=== PATIENT | male | born 1990 | race Caucasian/White ===

== ENCOUNTER 2019-11-28 13:58 | Emergency (ER) | payer OTHER ==
--- NOTE | 2019-11-28 14:44 | ED ---
Chest Pain HPI - General Chief Complaint: Chest Pain Stated Complaint: chest pain Time Seen by Provider: 11/28/19 14:04 Source: patient Mode of arrival: ambulatory Limitations: no limitations - History of Present Illness Initial Comments: Patient is 29-year-old male with no somatic a past medical history presenting to the emergency room with a chief complaint of chest pain. States the symptoms began about 3 days ago for left-sided chest. Patient reports the pain is located under his ribs on the left side and radiates to his left upper back. Reports the pain is pleuritic in nature and is exacerbated whenever he is laying flat. Pain does appear to be alleviated whenever he sits up or leans forward. States the pain is reproducible palpation. Does report chills and shaking of the upper extremities for the last 2 days. Denies any fevers at home. Denies history of hypertension and hyperlipidemia. Patient is not a smoker. Does have history of cardio vascular disease in the family. He also reports a sore throat, intermittent bilateral otalgia and and rhinorrhea with yellow mucus production. - Related Data Previous Rx's Medication Instructions Recorded Amoxicillin/Potassium Clav 1 tab PO Q12HR #20 tab 11/28/19 [Augmentin 875-125 Tablet] Allergies Allergy/AdvReac Type Severity Reaction Status Date / Time No Known Allergies Allergy Verified 11/28/19 14:02 Review of Systems ROS Statement: Those systems with pertinent positive or pertinent negative responses have been documented in the HPI. ROS Other: All systems not noted in ROS Statement are negative. EKG Findings - EKG Comments: EKG Findings:: Normal sinus rhythm, no ST changes. Ventricular rate 76, PA 118, QRS 94, QTC 436. Past Medical History Past Medical History: No Reported History History of Any Multi-Drug Resistant Organisms: None Reported Past Surgical History: No Surgical Hx Reported Past Psychological History: No Psychological Hx Reported Smoking Status: Former smoker Past Alcohol Use History: Occasional Past Drug Use History: Marijuana General Exam Limitations: no limitations General appearance: alert, anxious Head exam: Present: atraumatic, normocephalic, normal inspection Eye exam: Present: normal appearance Pupils: Present: normal accommodation ENT exam: Present: normal exam, normal oropharynx (Tonsillar erythema and enlargement. Mild maxillary sinus tenderness.), mucous membranes moist, TM's normal bilaterally, normal external ear exam Neck exam: Present: normal inspection, full ROM Respiratory exam: Present: normal lung sounds bilaterally, chest wall tenderness (Left-sided, lower chest tenderness). Absent: respiratory distress, wheezes, rales Cardiovascular Exam: Present: regular rate, normal rhythm, normal heart sounds, other (No pericardial friction rub) GI/Abdominal exam: Present: soft. Absent: distended, tenderness, guarding Extremities exam: Present: normal inspection, full ROM Back exam: Present: normal inspection, full ROM Neurological exam: Present: alert, oriented X3 Psychiatric exam: Present: normal affect, normal mood Skin exam: Present: warm, dry, intact, normal color Course Vital Signs 11/28/19 11/28/19 11/28/19 14:00 16:02 17:33 Temperature 97.9 F 99.8 F H Pulse Rate 115 H 76 72 Respiratory 22 18 18 Rate Blood Pressure 175/96 162/93 165/94 O2 Sat by Pulse 98 99 98 Oximetry Chest Pain MDM - Differential Diagnosis Pericarditis, Pleurisy-Other, Chest Wall Syndrome - MDM Patient is a 29-year-old male presenting to the emergency department with a chief complaint of chest pain. On exam patient does have a producible chest tenderness with palpation. He also appears to have upper respiratory symptoms with a sore throat. EKG shows normal sinus rhythm. No ST elevations in precordial leads that was suggest pericarditis. Chest x-ray is unremarkable.patient does have leukocytosis of 15.5 K. Troponin is negative. CMP does show mild decrease in magnesium of 1.5. Patient given magnesium in the ED. UA is unremarkable. also exmained the patient and suggested rapid strep testing which came back negative. He suggested treatment for sinusitis considering patient continues to have yellow rhinorrhea with some maxillary tenderness. Patient also given aspirin in the ed. Reevaluation patient reports improvement in symptoms. He was also given analgesia to help with the reproducible chest pain. Return parameters were thoroughly discussed with patient was understanding and agreeable. Case discussed with physician. Disposition Clinical Impression: Chest wall tenderness, Sinusitis, Upper respiratory infection, Sore throat, Atypical chest pain Disposition: HOME SELF-CARE Condition: Stable Instructions (If sedation given, give patient instructions): Chest Pain (DC) Additional Instructions: Take prescribed medication as directed. Return to emergency department if symptoms worsen. Prescriptions: Amoxicillin/Potassium Clav [Augmentin 875-125 Tablet] 1 tab PO Q12HR #20 tab Is patient prescribed a controlled substance at d/c from ED?: No Referrals: None,Stated [Primary Care Provider] - 1-2 days Time of Disposition: 17:11
--- NOTE | 2019-11-28 14:53 | XR ---
EXAMINATION TYPE: XR chest 2V DATE OF EXAM: 11/28/2019 COMPARISON: NONE HISTORY: Chest pain TECHNIQUE: Frontal and lateral views of the chest are obtained. FINDINGS: There is no focal air space opacity, pleural effusion, or pneumothorax seen. The cardiac silhouette size is upper limits of normal size. The osseous structures are intact. IMPRESSION: No acute cardiopulmonary process.
[2019-11-28] MEDS ORDERED: ASPIRIN 81 MG PO STA (15:09)
[2019-11-28] MEDS ORDERED: KETOROLAC 30 MG/ML 1 ML VIAL IVP STA (15:53)
[2019-11-28 16:09] LABS: Basophils % (A) 0 %; Eosinophils # (A) 0.2 k/uL (0-0.7); Eosinophils % (A) 2 %; HCT 50.9 % (39.0-53.0); HGB 16.7 gm/dL (13.0-17.5); Lymphocytes # (A) 2.2 k/uL (1.0-4.8); Lymphocytes % (A) 14 %; MCH 30.2 pg (25.0-35.0); MCHC 32.8 g/dL (31.0-37.0); MCV 92.1 fL (80.0-100.0); Mean Platelet Volume 7.5; Monocytes # (A) 0.9 k/uL (0-1.0); Monocytes % (A) 6 %; Neutrophils # (A) 11.9 k/uL (1.3-7.7); Neutrophils % (A) 77 %; Platelet Count 292 k/uL (150-450); RBC 5.53 m/uL (4.30-5.90); WBC 15.5 k/uL (3.8-10.6)
[2019-11-28 16:19] LABS: AST 69 U/L (17-59); African American GFR (CKD) >90 (>60 ml/min/1.73 sqM); Albumin 4.9 g/dL (3.5-5.0); Alkaline Phosphatase 92 U/L (38-126); Anion Gap 13 mmol/L; Blood Urea Nitrogen 5 mg/dL (9-20); Carbon Dioxide 25 mmol/L (22-30); Chloride 97 mmol/L (98-107); Glucose 96 mg/dL (74-99); Magnesium 1.5 mg/dL (1.6-2.3); Non-African American GFR(CKD) >90 (>60 ml/min/1.73 sqM); Potassium 3.9 mmol/L (3.5-5.1); Sodium 135 mmol/L (137-145); Total Bilirubin 2.1 mg/dL (0.2-1.3); Total Protein 7.1 g/dL (6.3-8.2)
[2019-11-28 16:21] LABS: Partial Thromboplastin Time 24.8 sec (22.0-30.0); Prothrombin Time 10.8 sec (9.0-12.0)
[2019-11-28 16:25] LABS: ALT 67 U/L (4-49)
[2019-11-28] MEDS ORDERED: MAGNESIUM OXIDE 400 MG TAB PO STA (16:50)
[2019-11-28] MEDS ORDERED: LIDOCAINE 5% PATCH TOPICAL STA (16:51)
[2019-11-28] MEDS ORDERED: AMOXIC-POT CLAV 875MG STARTER PACK 2 TAB BTL PO STA (17:12)
[2019-11-28 17:36] VITALS: BP 165/94; PULSE 72; RESP 18; TEMP 99.8
[2019-11-28] MEDS ORDERED: ACET/COD 300 MG/30 MG STARTER PACK 6 TAB BTL PO STA (17:55)
== END 2019-11-28 18:07 | disposition home or self-care (01) ==
LOC: EC 13:58
DX: R07.89 Other chest pain (principal); J01.90 Acute sinusitis, unspecified; D72.829 Elevated white blood cell count, unspecified; E61.2 Magnesium deficiency; Z87.891 Personal history of nicotine dependence; Z82.49 Family history of ischemic heart disease and other diseases of the circulatory system
CPT/HCPCS: 36415; 93005; 80053; 83735; 84484; 85025; 85610; 85730; 87081; 87430; 71046; 99284; 96374; J1885